=== PATIENT | female | born 1955 | race Hispanic/Latino ===

== ENCOUNTER 2020-09-07 09:58 | Outpatient (CLI) | payer OTHER | END 2020-09-07 09:59 | disposition home or self-care (01) | LOC: CSHMAMMO 09:58 | PROVIDERS: ATTEND Family Medicine | DX: Z12.31 Encounter for screening mammogram for malignant neoplasm of breast (principal) | CPT/HCPCS: 77063; 77067 ==

== ENCOUNTER 2020-09-30 11:42 | Outpatient (CLI) | payer OTHER ==
[2020-10-01 02:31] LABS: SARS-CoV-2 PCR by NAA Not Detected (NotDetected)
== END 2020-09-30 11:43 | disposition home or self-care (01) ==
LOC: CSHLAB 11:42
PROVIDERS: ATTEND Internal Medicine Gastroenterology
DX: Z20.822 Contact with and (suspected) exposure to COVID-19 (principal); Z12.11 Encounter for screening for malignant neoplasm of colon
CPT/HCPCS: 87635; U0003; U0005

== ENCOUNTER 2020-10-05 06:45 | Day surgery (SDC) | payer OTHER ==
[2020-10-01 11:31] VITALS: BMI 31.1
[2020-10-05] MEDS ORDERED: Lidocaine 1% MPF 2 ML VIAL ONE (07:20)
[2020-10-05] MEDS ORDERED: PROPOFOL 40 ML ONE (07:52)
[2020-10-05] MEDS ORDERED: Lidocaine 2% MPF 10 ML AMP (For Epidural Use) ONE (08:31)
[2020-10-05] MEDS ORDERED: PROPOFOL 20 ML ONE (08:39)
== END 2020-10-05 09:40 | disposition home or self-care (01) ==
LOC: CSHSDC 06:45
PROVIDERS: ATTEND Internal Medicine Gastroenterology
PROC: 0DJD8ZZ Inspection of Lower Intestinal Tract, Via Natural or Artificial Opening Endoscopic (ICD-10-PCS; principal; 2020-10-05)
DX: Z12.11 Encounter for screening for malignant neoplasm of colon (principal); K64.9 Unspecified hemorrhoids
CPT/HCPCS: J2704

== ENCOUNTER 2021-10-15 11:42 | Outpatient (CLI) | payer BC | END 2021-10-15 11:43 | disposition home or self-care (01) | LOC: CSHMAMMO 11:42 | PROVIDERS: ATTEND Nurse Practitioner Adult Health | DX: Z12.31 Encounter for screening mammogram for malignant neoplasm of breast (principal); Z80.3 Family history of malignant neoplasm of breast | CPT/HCPCS: 77063; 77067 ==